=== PATIENT | male | born 1970 | race Caucasian/White ===

== ENCOUNTER 2017-04-26 02:49 | Emergency (ER) | payer SELFPAY ==
[2017-04-26 03:45] VITALS: BP 129/72
== END 2017-04-26 03:45 | disposition home or self-care (01) ==
LOC: ED 02:49
DX: S83.91XA Sprain of unspecified site of right knee, initial encounter (principal); Y93.39 Activity, other involving climbing, rappelling and jumping off; Y93.89 Activity, other specified; Y99.8 Other external cause status; Y92.89 Other specified places as the place of occurrence of the external cause
CPT/HCPCS: Q0092